=== PATIENT | female | born 1955 | race Caucasian/White ===

== ENCOUNTER → 2017-03-21 | Outpatient (CLI) | payer OTHER | LOC: FIMAGING 10:42 | PROVIDERS: ATTEND Family Medicine | DX: Z12.31 Encounter for screening mammogram for malignant neoplasm of breast (principal) | CPT/HCPCS: G0202 ==

== ENCOUNTER → 2017-04-11 | Outpatient (CLI) | payer OTHER | LOC: FIMAGING 13:26 | PROVIDERS: ATTEND Family Medicine | DX: Z12.31 Encounter for screening mammogram for malignant neoplasm of breast (principal) | CPT/HCPCS: G0202 ==

== ENCOUNTER → 2018-06-14 | Outpatient (CLI) | payer OTHER | LOC: FIMAGING 15:50 | PROVIDERS: ATTEND Family Medicine | DX: Z12.31 Encounter for screening mammogram for malignant neoplasm of breast (principal) ==

== ENCOUNTER 2018-08-24 16:24 | Inpatient (IN) | payer OTHER ==
[2018-08-24] MEDS ORDERED: BISACODYL 10 MG SUPP PR PRN (20:12)
[2018-08-24] MEDS ORDERED: diphenhydrAMINE 25 MG CAP PO PRN ×2 (20:12)
[2018-08-24] MEDS ORDERED: LORazepam 0.5 MG TAB PO PRN (20:12)
[2018-08-24] MEDS ORDERED: OXYCODONE/APAP 5/325 TAB PO PRN (20:12)
[2018-08-24] MEDS ORDERED: CEFAZOLIN IV SCH (20:15)
[2018-08-24] MEDS ORDERED: DEXTROSE 2 GM IV SCH (20:15)
[2018-08-24] MEDS ORDERED: ALBUTEROL 60 PUFFS/8 GM MDI IH PRN (20:16)
[2018-08-24] MEDS: ASPIRIN EC 325 MG TAB PO SCH (21:42)
[2018-08-24] MEDS: traZODone 50 MG TAB PO SCH (21:42)
[2018-08-24] MEDS: SENNOSIDES/DOCUSATE SODIUM TAB PO SCH (21:42)
[2018-08-24] MEDS: MELATONIN 3 MG TAB PO SCH (21:42)
[2018-08-24] MEDS: PATCH REMOVAL 1 EA PATCH TD SCH (22:00)
[2018-08-24] MEDS: CLOTRIMAZOLE 10 MG TROCHE PO SCH (22:00)
[2018-08-24] MEDS: ceFAZolin 2 GM/DEXTROSE 100 ML IV SCH (23:04)
[2018-08-25] MEDS: ceFAZolin 2 GM/DEXTROSE 100 ML IV SCH ×3 (07:28→21:50)
[2018-08-25] MEDS ORDERED: RIFAMPIN 300 MG CAP PO SCH (07:30)
[2018-08-25] MEDS ORDERED: FAMOTIDINE 20 MG TAB PO SCH (09:00)
[2018-08-25] MEDS ORDERED: LEVOTHYROXINE 50 MCG TAB PO SCH (09:00)
[2018-08-25 09:05] LABS: PLATELET COUNT 453 10^3/uL (150-400)
[2018-08-25] MEDS: FLUTICASONE NASAL 120 SPRAYS/16 GM MDI EACHNARE SCH (09:55)
[2018-08-25] MEDS: CLOTRIMAZOLE 10 MG TROCHE PO SCH ×4 (09:56→20:24)
[2018-08-25] MEDS: LIDOCAINE 4%/MENTHOL 1% PATCH TD SCH (09:58)
[2018-08-25] MEDS: ASPIRIN EC 325 MG TAB PO SCH (09:59)
[2018-08-25] MEDS: NYSTATIN POWDER 15 GM BTL TP SCH (10:01)
[2018-08-25] MEDS: MULTIVITAMINS W-MINERALS 1 EACH TAB PO SCH (10:07)
[2018-08-25] MEDS: SENNOSIDES/DOCUSATE SODIUM TAB PO SCH ×2 (10:09→20:23)
[2018-08-25] MEDS: TRIAMTERENE/HCTZ 37.5/25 1 EACH TAB PO SCH (10:09)
--- NOTE | 2018-08-25 12:50 | GHP ---
[f rep st] HISTORY AND PHYSICAL DATE OF ADMISSION: 08/24/2018 TIME OF EVALUATION: 0925 REFERRING FACILITY: [facility]. REFERRING PHYSICIAN: Dr. Foster IMPAIRMENT GROUP: [id number]. DATE OF ONSET: 07/29/2018. CONSULTING PHYSICIANS: Orthopedic surgeon, Dr. Clemons; Infectious Disease customer care consultant, Dr. Lane. REHABILITATION DIAGNOSES: Debility status post staphylococcal sepsis, lumbar diskitis, lumbar osteomyelitis, epidural abscess, and multiple joint septic arthritis. ETIOLOGIC DIAGNOSIS: Other orthopedic. DATE OF SURGERY: She had multiple surgeries during her hospitalization. HISTORY OF PRESENT ILLNESS: This patient was admitted to [facility] on 07/29/2018, with a diagnosis of sepsis with pyogenic arthritis at multiple sites. She had surgeries including incision and drainage of left foot with hardware removal, incision and drainage of left knee, and incision and drainage of right wrist, and subsequent washout procedures. She had incisional wound VACs which eventually were discontinued. Other hospital complications included urinary retention which has resolved, lumbar osteomyelitis/diskitis which was not treated surgically, epidural abscess, psoas abscess, elevated blood pressure , and acute kidney injury. She was eventually medically stabilized and on IV antibiotics with declining inflammatory markers, so she was appropriate for rehabilitation. STUDIES AND LABS IN THE HOSPITAL: I do not have a full list. There were lumbar and thoracic MRIs done which showed the L1 and L2 osteomyelitis, L4 osteomyelitis, L3-4 diskitis, and a posterior paraspinal muscular abscess to T6. Blood cultures grew methicillin-susceptible Staphylococcus aureus which also grew from multiple joint fluids. She had a transesophageal echocardiogram which showed no evidence of endocarditis. Her ejection fraction was 65%. She had MR imaging of the left foot. Most recent CBC showed anemia with a hemoglobin of 8.1 and hematocrit of 25.1. Platelet count was elevated at 461. White blood cell count was 9.2. Serum chemistry showed a slightly low albumin at 2.7. Otherwise, renal function and electrolytes were normal. Magnesium and phosphorus were normal. These labs were all from 08/24/2018. Inflammatory markers on 08/23/2018 showed improvement with erythrocyte sedimentation of 60 and a CRP of 80.4. PRECAUTIONS: She is a fall risk. She has orthopedic precautions with nonweightbearing to the left foot with the exception of transfers. ACTIVE COMORBIDITIES: She has no active tier 1, tier 2 or tier 3 comorbidities. PAST MEDICAL HISTORY: 1. Arthritis to both knees. 2. Asthma. 3. Osteoporosis. 4. Raynaud syndrome. 5. Hypothyroidism. 6. Varicella. PAST SURGICAL HISTORY: She had Achilles tendon surgery in 2014, section, colonoscopy 2007. Left foot surgery, left dislocated metatarsal with pinning in September of 2017. She has had a parathyroidectomy. She has had wisdom tooth extraction. PRE-HOSPITAL MEDICATIONS: 1. Bismuth subsalicylate 2 tablets q.12 hours for diarrhea. 2. Calcium carbonate 200 mg 2 tablets by mouth p.r.n. heartburn. 3. Cyclobenzaprine 5 mg t.i.d. p.r.n. muscle spasm. 4. Diphenhydramine 25 to 75 mg p.o. q.h.s. for sleep. 5. Docusate sodium 100 mg p.o. daily p.r.n. constipation. 6. Fluticasone 2 sprays each nostril daily. 7. Levothyroxine 50 mcg p.o. daily. 8. Meloxicam 15 mg p.o. daily. 9. Oxycodone/acetaminophen 1-2 tablets by mouth every 4 hours p.r.n. 10. Prednisone taper, which had been prescribed at urgent care visit for arthritis prior to her hospitalization. 11. Albuterol 2 puffs q.6 hours p.r.n. 12. Pseudoephedrine 120 mg p.o. b.i.d. p.r.n. nasal congestion. 13. Triamterene/hydrochlorothiazide 37.5/25 one p.o. daily. ADMISSION MEDICATIONS: 1. Albuterol 2 puffs q.4 hours p.r.n. 2. Amlodipine 10 mg p.o. daily. 3. Bisacodyl 10 mg OK p.r.n. 4. Cefazolin 2 g IV q.8 hours. 5. Clotrimazole 10 mg after meals and at h.s. in the form of clotrimazole tanvi. 6. Diphenhydramine 25 p.o. q.6 hours p.r.n. 7. Diphenhydramine 25 mg p.o. q.h.s. p.r.n. insomnia. 8. Fluticasone 2 sprays each naris daily. 9. Levothyroxine 50 mcg p.o. daily. 10. Lorazepam 0.5 mg p.o. q.8 hours p.r.n. anxiety. 11. Melatonin 3 mg p.o. q.h.s. 12. Icy Hot patch. 13. Multivitamin 1 p.o. daily. 14. Nystatin topical daily. 15. Oxycodone/acetaminophen 5/325 one to two tabs p.o. q.4 hours p.r.n. 16. Rifampin 300 mg p.o. b.i.d. before meals. 17. Senna/docusate 1-2 tabs p.o. b.i.d. 18. Triamterene/hydrochlorothiazide each p.o. daily. 19. Aspirin 325 mg p.o. b.i.d. 20. Famotidine 20 p.o. b.i.d. ALLERGIES: There are no known drug allergies. SOCIAL HISTORY: She is . She lives with her . They have 2 children. She is a nonsmoker. She works as a supply chain tech. She was quite active with cycling and weightlifting prior to her illness. FAMILY HISTORY: Noncontributory. She denies family history of immune deficiencies. REVIEW OF SYSTEMS: She is not in pain at present. She took 1 tablet of oxycodone/acetaminophen before bedtime last night. She slept very well on trazodone that was prescribed yesterday evening. Denies cough or dyspnea. Denies fevers or chills. Denies nausea, vomiting, constipation, or diarrhea. She is aware of some weight loss and thinks that she has lost muscle. She is urinating. Otherwise, a 10-point review of systems is negative. PHYSICAL EXAM: VITAL SIGNS: Blood pressure is 152/101 heart rate is 72, respiratory rate is 18, oxygen saturation 94% on room air, temperature was 36.9. Her weight is 43.1 kg, body mass index of 19. GENERAL: This is a slim woman who appears her chronologic age, dressed in street clothes, cooperative, and in no distress. HEENT: Extraocular movements are intact. Pupils are equal , round, and reactive to light. Mucous membranes are moist. There is no thrush evident. Dentition shows a crowded airway, Mallampati class 3. NECK: Supple. HEART: There is regular rate and rhythm with no murmurs rubs or gallops. LUNGS: Clear to auscultation bilaterally. ABDOMEN: Soft, nontender , nondistended, with normal bowel sounds with no hepatosplenomegaly. EXTREMITIES: There is no cyanosis or clubbing. There is 1+ edema left pretibial. NEUROLOGIC: Cranial nerves 2 through 12 grossly intact. There is no focal weakness. Sensation is intact to light touch. SKIN: Wounds were not inspected and will be inspected when dressings are changed per nursing. Otherwise, the skin was warm. CURRENT LEVEL OF FUNCTION: Per the preadmission screen. She was on a regular diet. Dressing required moderate to maximal assist. In the pre-admission screen, toileting involved use of the catheter for urination but catheter has since been removed. Bed mobility required contact guard for logroll. Transfers were done with contact guard assist. She used a front-wheeled walker. Balance required contact guard assist. She had good endurance. She was able to walk 50 feet with a front-wheeled walker with cues to maintain weightbearing. Mentation and cognition were intact. Other than removal of Roth catheter voiding, there are no significant changes today from the pre-admission. IMPRESSION: This is a 63-year-old woman who developed polyarticular septic arthritis. There was a delay in diagnosis as she was initially evaluated for back pain. After several more urgent care visits and doctor visits, polyarthritis was noted, and she was referred to Rheumatology. It Network Engineer did arthrocentesis and found purulent material and hospitalized the patient. She had incision and drainage of multiple joints and hardware removed from previous foot surgery, left foot. Wound cultures and blood cultures all grew methicillin sensitive Staphylococcus aureus. In the course of her illness, she had urinary retention, and she suffered acute kidney injury, both of which have resolved. Her inflammatory markers have been improving on cefazolin IV, and she is medically stable and ready for rehabilitation. Her goal is to complete a rehabilitation stay and return home to her family. For a safe discharge, she will need to advance to supervision to modified independence level for ADLs and mobility using the least restrictive device. She will need to be able to demonstrate safety with the use of compensatory strategies and adherence to weightbearing precautions. She will have therapy with physical therapy and occupational therapy for 90 minutes per day for each discipline. Her expected duration of stay is 5-7 days. It is anticipated that upon discharge, she will continue to benefit from home health services including nursing, social work, occupational therapy, and physical therapy. PLAN: 1. Methicillin sensitive Staphylococcus aureus sepsis, polyarticular septic arthritis, lumbar diskitis, osteomyelitis, epidural abscess, and several other abscesses with debility and left lower extremity weightbearing allowed only for transfers. PT and OT to optimize her mobility, activities of daily living. 2. Continue IV cefazolin for multiple joint septic arthritis sepsis and osteomyelitis/diskitis. She is to have labs drawn every Thursday with CBC, CMP, ESR, and CRP. These labs are to be faxed to Infectious Disease customer care consultant, Dr. Nhung Lane, at [phone]. 3. Nonweightbearing left foot except for transfers. She has followup scheduled with orthopedic surgeon, Dr. Clemons, at [facility] on August 31 at 2 p.m. 4. Symptom management. She slept well with trazodone at h.s. yesterday. This will be continued. Continue oxycodone/acetaminophen and continue lorazepam ordered p.r.n. for anxiety. Will have a low threshold to discontinue lidocaine/ menthol patch. 5. Thrush while in the hospital. She is on clotrimazole tanvi. I saw no evidence of thrush on oral exam today, but it was somewhat limited due to her crowded airway. Will continue until she has no symptoms of thrush. 6. Hypertension. She was on triamterene/hydrochlorothiazide prior to her hospitalization. Amlodipine was added. Blood pressure will be monitored and medications adjusted as needed. 7. Chronic recurrent sinusitis. Fluticasone nasal spray. 8. Hypothyroidism. Continue levothyroxine. 9. History of gastroesophageal reflux disease is listed in her admission paperwork from the hospital, but she denies any gastroesophageal reflux disease. Will not continue famotidine. 10. Questionable history of asthma. Continue albuterol p.r.n. 11. Prophylaxis. There is no hemiparesis. She is not elderly or obese. She is nonweightbearing due to left foot surgery, but otherwise has normal mobility. Will not initiate pharmacologic prophylaxis to be at moderate risk at present. 12. Followup. She is to see Dr. Clemons most likely August 31 at [facility] in [place] rather than at [facility]. She is scheduled to see Infectious Disease customer care consultant, Dr. Lane, on September 06. If she is still in inpatient rehabilitation, will have discussion with Dr. Lane regarding whether she needs to be seen in person. /[id number]/MODL MTDD
[2018-08-25] MEDS: RIFAMPIN 300 MG CAP PO SCH (18:27)
[2018-08-25] MEDS ORDERED: CALCIUM CARBONATE 500 MG CHEWABLE TAB PO PRN (21:20)
[2018-08-25] MEDS ORDERED: MAG HYDROX/AL HYDROX/SIMETH 30 ML UDCUP PO PRN (21:20)
[2018-08-25] MEDS: PATCH REMOVAL 1 EA PATCH TD SCH (21:52)
[2018-08-25] MEDS: traZODone 50 MG TAB PO SCH (21:52)
[2018-08-25] MEDS: MELATONIN 3 MG TAB PO SCH (21:52)
[2018-08-25] MEDS: FAMOTIDINE 20 MG TAB PO SCH (23:12)
[2018-08-26] MEDS: ceFAZolin 2 GM/DEXTROSE 100 ML IV SCH ×3 (06:04→21:23)
[2018-08-26] MEDS: RIFAMPIN 300 MG CAP PO SCH ×2 (06:04→15:47)
[2018-08-26] MEDS: LEVOTHYROXINE 50 MCG TAB PO SCH (06:05)
[2018-08-26] MEDS: SENNOSIDES/DOCUSATE SODIUM TAB PO SCH ×2 (08:42→21:22)
[2018-08-26] MEDS: MULTIVITAMINS W-MINERALS 1 EACH TAB PO SCH (08:42)
[2018-08-26] MEDS: NYSTATIN POWDER 15 GM BTL TP SCH (08:42)
[2018-08-26] MEDS: CLOTRIMAZOLE 10 MG TROCHE PO SCH ×2 (08:43→15:01)
[2018-08-26] MEDS: FAMOTIDINE 20 MG TAB PO SCH ×2 (08:43→21:23)
[2018-08-26] MEDS: TRIAMTERENE/HCTZ 37.5/25 1 EACH TAB PO SCH (08:43)
[2018-08-26] MEDS: FLUTICASONE NASAL 120 SPRAYS/16 GM MDI EACHNARE SCH (09:55)
[2018-08-26] MEDS: LIDOCAINE 4%/MENTHOL 1% PATCH TD SCH (09:56)
--- NOTE | 2018-08-26 11:24 | SOAPPROG ---
SOAP Progress Note Assessment/Plan: Assessment: Methicillin sensitive Staphylococcus aureus sepsis, polyarticular septic arthritis, lumbar diskitis, osteomyelitis, epidural abscess, and several other abscesses with debility and left lower extremity weightbearing allowed only for transfers. PT and OT to optimize her mobility, activities of daily living. Continue IV cefazolin for multiple joint septic arthritis sepsis and osteomyelitis/diskitis. She is to have labs drawn every Thursday with CBC, CMP, ESR, and CRP. These labs are to be faxed to Infectious Disease internet consultant, Dr. Nhung Lane, at [phone]. Dressing changes every other day. * Examined wound on left foot with nurse during dressing change. Sutures are in place. Wounds are clean dry and intact. Nonweightbearing left foot except for transfers. She has followup scheduled with orthopedic surgeon, Dr. Clemons, at [facility] on August 31 at 2 p.m. * Discussed with Dr. Mays, 08/25/2018. Expect she will progress to full weight -bearing after her follow-up visit. Symptom management. She slept well with trazodone at h.s. yesterday. This will be continued. Continue oxycodone/acetaminophen and continue lorazepam ordered p.r.n. for anxiety. Will have a low threshold to discontinue lidocaine/ menthol patch. Thrush while in the hospital, resolved. Discontinue clotrimazole tanvi. Hypertension. She was on triamterene/hydrochlorothiazide prior to her hospitalization. Amlodipine was added. Blood pressure will be monitored and medications adjusted as needed. Chronic recurrent sinusitis. Fluticasone nasal spray. Hypothyroidism. Continue levothyroxine. GERD. Continue famotidine. Questionable history of asthma. Continue albuterol p.r.n. Prophylaxis. There is no hemiparesis. She is not elderly or obese. She is nonweightbearing due to left foot surgery, but otherwise has normal mobility. Will not initiate pharmacologic prophylaxis to be at moderate risk at present. Followup. She is to see Dr. Clemons August 31 at [facility]. She is scheduled to see Infectious Disease internet consultant, Dr. Lane, on September 06. If she is still in inpatient rehabilitation, will have discussion with Dr. Lane regarding whether she needs to be seen in person. 08/26/18 15:28 Subjective: Confusion regarding weight-bearing and followups. Otherwise doing well. Reports pain has improved and will no longer use opiates. Had symptoms reflux after tomato sauce with dinner and famotidine was restarted. Objective: Vital Signs Temp Pulse Resp BP Pulse Ox 36.8 C 85 94 H 135/88 H 92 08/26/18 06:18 08/26/18 08:39 08/26/18 08:39 08/26/18 08:39 08/26/18 06:18 Laboratory Results 08/25/18 06:00 08/25/18 06:00 08/25/18 08/26/18 08/27/18 05:59 05:59 05:59 Intake Total 685 635 640 Output Total 200 3950 500 Balance 485 -3315 140 Physical Exam - Physical Exam General Appearance: WD/WN, alert, no apparent distress, thin Respiratory: No respiratory distress, No accessory muscle use Skin: normal color, warm/dry, other (3 incisions on left foot, sutured, clean, dry, intact) Neuro/Psych: no motor/sensory deficits, alert, normal mood/affect, oriented x 3 ICD10 Worksheet Patient Problems: Problems Problem Status Onset Septic arthritis Acute
--- NOTE | 2018-08-26 11:24 | PDOREHIP ---
Admission [facility] - Admission - 3 Day Assessment Period Admission Date/Day 1: 08/24/18 Day 2: 08/25/18 Day 3: 08/26/18 - Active Diagnoses Comorbidities and Co-existing Conditions at Admission: 91861. None of the Above - Skin Conditions Unhealed Pressure Ulcer (1 or more/Stage 1 or >)-Admission: 0. No # Stage 1 Pressure Ulcers-Admission: 0 # Stage 2 Pressure Ulcers-Admission: 0 # Stage 3 Pressure Ulcers-Admission: 0 # Stage 4 Pressure Ulcers-Admission: 0 # Unstageable Pressure Ulcers (Non-remove Dress)-Admission: 0 # Unstageable Pressure Ulcers (Slough/Eschar)-Admission: 0 # Unstageable Pressure Ulcers (Deep Tissue Injury)-Admission: 0 Discharge [facility] - Discharge - 3 Day Assessment Period 2 Days Prior to Anticipated Discharge Date: 08/29/18 1 Day Prior to Anticipated Discharge Date: 08/30/18 Anticipated Discharge Date: 08/31/18
[2018-08-26] MEDS: ACETAMINOPHEN 325 MG TAB PO PRN ×2 (18:26→22:39)
[2018-08-26] MEDS: traZODone 50 MG TAB PO SCH (21:00)
[2018-08-26] MEDS: MELATONIN 3 MG TAB PO SCH (21:23)
[2018-08-26] MEDS: PATCH REMOVAL 1 EA PATCH TD SCH (22:39)
[2018-08-27] MEDS: LEVOTHYROXINE 50 MCG TAB PO SCH (05:43)
[2018-08-27] MEDS: RIFAMPIN 300 MG CAP PO SCH ×2 (05:43→17:18)
[2018-08-27] MEDS: ceFAZolin 2 GM/DEXTROSE 100 ML IV SCH ×3 (05:43→21:30)
[2018-08-27] MEDS: LIDOCAINE 4%/MENTHOL 1% PATCH TD SCH (08:06)
[2018-08-27] MEDS: FAMOTIDINE 20 MG TAB PO SCH ×2 (08:06→21:30)
[2018-08-27] MEDS: MULTIVITAMINS W-MINERALS 1 EACH TAB PO SCH (08:06)
[2018-08-27] MEDS: TRIAMTERENE/HCTZ 37.5/25 1 EACH TAB PO SCH (08:06)
[2018-08-27] MEDS: ACETAMINOPHEN 325 MG TAB PO PRN ×3 (08:07→20:56)
[2018-08-27] MEDS: FLUTICASONE NASAL 120 SPRAYS/16 GM MDI EACHNARE SCH (08:07)
[2018-08-27] MEDS: SENNOSIDES/DOCUSATE SODIUM TAB PO SCH ×2 (08:08→21:31)
--- NOTE | 2018-08-27 12:01 | SOAPPROG ---
SOAP Progress Note Assessment/Plan: Assessment: Methicillin sensitive Staphylococcus aureus sepsis, polyarticular septic arthritis, lumbar diskitis, osteomyelitis, epidural abscess, and several other abscesses with debility and left lower extremity weightbearing allowed only for transfers. * Initial functional independence measure is 90 on 08/27/2018. Standby assist for transfers and bed mobility. Ambulated 75 ft with front wheeled walker, standby assist with cues for limited weight-bearing. Climbed and descended 3 steps with 1 rail and a crutch. Needed contact guard assist. Had a step to pattern. Setup or standby assist for ADLs. * Continue PT and OT to optimize her mobility, activities of daily living. Continue IV cefazolin for multiple joint septic arthritis sepsis and osteomyelitis/diskitis. She is to have labs drawn every Thursday with CBC, CMP, ESR, and CRP. These labs are to be faxed to Infectious Disease computer consultant, Dr. Nhung Lane, at [phone]. Dressing changes every other day. * ESR 60 and CRP 80.4 on 08/23/2018 in the hospital. ESR 71, CRP 76.9 on 2018. There was no leukocytosis. * Examined wound on left foot with nurse during dressing change. Sutures are in place. Wounds are clean dry and intact, with no swelling or erythema. Nonweightbearing left foot except for transfers. She has followup scheduled with orthopedic surgeon, Dr. Clemons, at [facility] [place] on August 31 at 2 p.m. * Discussed with Dr. Clemons, 08/25/2018. Expect she will progress to full weight- bearing after her follow-up visit. Symptom management. She slept well with trazodone at h.s. yesterday. This will be continued. Acetaminophen is sufficient for pain. Not using lorazepam for anxiety. Will have a low threshold to discontinue lidocaine/menthol patch. Thrush while in the hospital, resolved. Discontinue clotrimazole tanvi. Hypertension. She was on triamterene/hydrochlorothiazide prior to her hospitalization. Amlodipine was added. * Blood pressure remains consistently elevated. She would benefit from a 3rd agent. Per literature review, there is a higher probability of hypertension following acute kidney injury. * Check postvoid residual to ensure that a distended bladder is not causing elevated blood pressure. Chronic recurrent sinusitis. Fluticasone nasal spray. Hypothyroidism. Continue levothyroxine. GERD. Continue famotidine. Questionable history of asthma. Continue albuterol p.r.n. Prophylaxis. There is no hemiparesis. She is not elderly or obese. She is nonweightbearing due to left foot surgery, but otherwise has normal mobility. Will not initiate pharmacologic prophylaxis to be at moderate risk at present. DISPOSITION: Attended staffing, 15 min. Discussed with case management, nursing, PT, OT. Needs to have a high level of independence to be home, as her is gone from 8:00 a.m. To 8:00 p.m.. They are 3 steps to enter the home and then she lives on 1 level. Discharge date set for 08/31/2018. She will have home PT and OT. Followup. She is to see Dr. Clemons August 31 at [facility] [place]. She is scheduled to see Infectious Disease computer consultant, Dr. Lane, on September 06. If she is still in inpatient rehabilitation, will have discussion with Dr. Lane regarding whether she needs to be seen in person. 08/27/18 12:01 08/27/18 12:11 Subjective: She continues to have some pain in the right sacroiliac joint region. However she is no longer taking the oxycodone/acetaminophen combination. She has adequate pain control with acetaminophen alone. She slept better last night with trazodone. She has swelling and reduced range of motion in the left wrist. She denies cough or dyspnea. She denies dysuria or urinary frequency. She feels she is emptying her bladder completely. She wonders why her blood pressure is high. Objective: Vital Signs Temp Pulse Resp BP Pulse Ox 36.8 C 65 18 143/93 H 97 08/27/18 07:54 08/27/18 07:54 08/27/18 07:54 08/27/18 07:54 08/27/18 07:54 Laboratory Results 08/25/18 06:00 08/25/18 06:00 08/26/18 08/27/18 08/28/18 05:59 05:59 05:59 Intake Total 635 1852 Output Total 3950 1100 Balance -3315 752 Physical Exam - Physical Exam General Appearance: WD/WN, alert, no apparent distress Respiratory: normal breath sounds, No crackles, No rhonchi, No wheezing Cardiac/Chest: regular rate, rhythm, No diastolic murmur, No systolic murmur Skin: normal color, warm/dry Extremities: other (Left wrist with mild swelling and reduced range of motion. No warmth or erythema.) Neuro/Psych: no motor/sensory deficits, alert, normal mood/affect, oriented x 3 ICD10 Worksheet Patient Problems: Problems Problem Status Onset Septic arthritis Acute
[2018-08-27] MEDS: NYSTATIN POWDER 15 GM BTL TP SCH (12:42)
[2018-08-27] MEDS: LOSARTAN POTASSIUM 25 MG TAB PO SCH (14:35)
[2018-08-27] MEDS: MELATONIN 3 MG TAB PO SCH (21:31)
[2018-08-27] MEDS: traZODone 50 MG TAB PO SCH (21:31)
[2018-08-27] MEDS: PATCH REMOVAL 1 EA PATCH TD SCH (23:03)
[2018-08-28] MEDS: ceFAZolin 2 GM/DEXTROSE 100 ML IV SCH ×3 (06:02→21:57)
[2018-08-28] MEDS: LEVOTHYROXINE 50 MCG TAB PO SCH (06:02)
[2018-08-28] MEDS: RIFAMPIN 300 MG CAP PO SCH ×2 (06:02→16:04)
[2018-08-28] MEDS: ACETAMINOPHEN 325 MG TAB PO PRN ×3 (07:25→23:02)
--- NOTE | 2018-08-28 09:34 | SOAPPROG ---
SOAP Progress Note Assessment/Plan: Assessment: Methicillin sensitive Staphylococcus aureus sepsis, polyarticular septic arthritis, lumbar diskitis, osteomyelitis, epidural abscess, and several other abscesses with debility and left lower extremity weightbearing allowed only for transfers. * Initial functional independence measure is 90 on 08/27/2018. Standby assist for transfers and bed mobility. Ambulated 75 ft with front wheeled walker, standby assist with cues for limited weight-bearing. Climbed and descended 3 steps with 1 rail and a crutch. Needed contact guard assist. Had a step to pattern. Setup or standby assist for ADLs. * Continue PT and OT to optimize her mobility, activities of daily living. Continue IV cefazolin for multiple joint septic arthritis sepsis and osteomyelitis/diskitis. She is to have labs drawn every Thursday with CBC, CMP, ESR, and CRP. These labs are to be faxed to Infectious Disease performance management consultant, Dr. Nhung Lane, at [phone]. Dressing changes every other day. CHECK LABS ON THURSDAY AND FAXED TO DR. NHUNG LANE * ESR 60 and CRP 80.4 on 08/23/2018 in the hospital. ESR 71, CRP 76.9 on 2018. There was no leukocytosis. * Examined wound on left foot with nurse during dressing change. Sutures are in place. Wounds are clean dry and intact, with no swelling or erythema. Nonweightbearing left foot except for transfers. She has followup scheduled with orthopedic surgeon, Dr. Clemons, at [facility] [place] on August 31 at 2 p.m. * Discussed with Dr. Clemons, 08/25/2018. Expect she will progress to full weight- bearing after her follow-up visit. Symptom management. She slept well with trazodone at [facility] yesterday. This will be continued. Acetaminophen is sufficient for pain. Not using lorazepam for anxiety. Will have a low threshold to discontinue lidocaine/menthol patch. Thrush while in the hospital, resolved. Discontinue clotrimazole tanvi. Hypertension. She was on triamterene/hydrochlorothiazide prior to her hospitalization. Amlodipine was added. * Blood pressure remains consistently elevated. She would benefit from a 3rd agent. Per literature review, there is a higher probability of hypertension following acute kidney injury. * Check postvoid residual to ensure that a distended bladder is not causing elevated blood pressure. * AMLODIPINE WAS ADDED ON 08/27. BLOOD PRESSURE 2/16 A.M. PENDING. BP ON 151/89. WILL CONTINUE TO MONITOR. Chronic recurrent sinusitis. Fluticasone nasal spray. Hypothyroidism. Continue levothyroxine. GERD. Continue famotidine. Questionable history of asthma. Continue albuterol p.r.n. Prophylaxis. There is no hemiparesis. She is not elderly or obese. She is nonweightbearing due to left foot surgery, but otherwise has normal mobility. Will not initiate pharmacologic prophylaxis to be at moderate risk at present. DISPOSITION: Attended staffing, 15 min. Discussed with case management, nursing, PT, OT. Needs to have a high level of independence to be home, as her is gone from 8:00 a.m. To 8:00 p.m.. They are 3 steps to enter the home and then she lives on 1 level. Discharge date set for 08/31/2018. She will have home PT and OT. Followup. She is to see Dr. Clemons August 31 at [facility] [place]. She is scheduled to see Infectious Disease performance management consultant, Dr. Lane, on September 06. If she is still in inpatient rehabilitation, will have discussion with Dr. Lane regarding whether she needs to be seen in person. Plan: 08/28/18 09:28 08/28/18 09:38 08/28/18 09:41 Subjective: SHE DENIES SIGNIFICANT LEFT FOOT PAIN. SHE DOES NOT REPORT INCREASED PAIN DURING TRANSFERS. SHE REPORTS BACK PAIN FROM PROLONGED SITTING AND CUMULATIVE BED REST OVER THE PAST 5 WEEKS. SHE HAS SOME SORENESS OF HER LEFT WRIST. Objective: Vital Signs Temp Pulse Resp BP Pulse Ox 36.9 C 76 15 151/89 H 97 08/27/18 20:00 08/27/18 20:00 08/27/18 20:00 08/27/18 20:00 08/27/18 20:00 Laboratory Results 08/25/18 06:00 08/25/18 06:00 08/27/18 08/28/18 08/29/18 05:59 05:59 05:59 Intake Total 1852 1810 Output Total 1100 3100 300 Balance 752 -1290 -300 Physical Exam - Physical Exam General Appearance: WD/WN, alert, no apparent distress, other (LEFT WALKING BOOT IN PLACE.) Respiratory: lungs clear, normal breath sounds Cardiac/Chest: edema (MILD EDEMA BOTH HANDS MORE PRONOUNCED ON THE LEFT.), No gallop, No diastolic murmur, No friction rub Abdomen: normal bowel sounds, non-tender, soft Skin: normal color, warm/dry Extremities: normal range of motion (DECREASED RIGHT AND LEFT WRIST EXTENSION, MORE PRONOUNCED ON THE LEFT. SLIGHT SWELLING LEFT ULNAR STYLOID), No non- tender (LEFT WRIST SLIGHTLY TENDER TO PALPATION.), No Roxana's sign Neuro/Psych: alert, normal mood/affect, oriented x 3, motor weakness ( GENERALIZED UPPER AND LOWER EXTREMITY WEAKNESS BUT STRENGTH IS FUNCTIONAL.), No sensory deficit ICD10 Worksheet Patient Problems: Problems Problem Status Onset Septic arthritis Acute
[2018-08-28] MEDS: LIDOCAINE 4%/MENTHOL 1% PATCH TD SCH (09:46)
[2018-08-28] MEDS: SENNOSIDES/DOCUSATE SODIUM TAB PO SCH ×2 (09:48→19:21)
[2018-08-28] MEDS: MULTIVITAMINS W-MINERALS 1 EACH TAB PO SCH (09:48)
[2018-08-28] MEDS: FAMOTIDINE 20 MG TAB PO SCH ×2 (09:49→21:57)
[2018-08-28] MEDS: TRIAMTERENE/HCTZ 37.5/25 1 EACH TAB PO SCH (09:49)
[2018-08-28] MEDS: LOSARTAN POTASSIUM 25 MG TAB PO SCH (09:49)
[2018-08-28] MEDS: NYSTATIN POWDER 15 GM BTL TP SCH (09:51)
[2018-08-28] MEDS: FLUTICASONE NASAL 120 SPRAYS/16 GM MDI EACHNARE SCH (09:52)
[2018-08-28] MEDS: MELATONIN 3 MG TAB PO SCH (21:57)
[2018-08-28] MEDS: traZODone 50 MG TAB PO SCH (21:57)
[2018-08-28] MEDS: PATCH REMOVAL 1 EA PATCH TD SCH (21:58)
[2018-08-29] MEDS: RIFAMPIN 300 MG CAP PO SCH ×2 (05:11→16:29)
[2018-08-29] MEDS: LEVOTHYROXINE 50 MCG TAB PO SCH (05:11)
[2018-08-29] MEDS: ceFAZolin 2 GM/DEXTROSE 100 ML IV SCH ×3 (05:11→21:49)
[2018-08-29] MEDS: LIDOCAINE 4%/MENTHOL 1% PATCH TD SCH (07:45)
[2018-08-29] MEDS: FLUTICASONE NASAL 120 SPRAYS/16 GM MDI EACHNARE SCH (07:45)
[2018-08-29] MEDS: FAMOTIDINE 20 MG TAB PO SCH ×2 (07:45→21:49)
[2018-08-29] MEDS: MULTIVITAMINS W-MINERALS 1 EACH TAB PO SCH (07:46)
[2018-08-29] MEDS: SENNOSIDES/DOCUSATE SODIUM TAB PO SCH ×2 (07:46→19:43)
[2018-08-29] MEDS: LOSARTAN POTASSIUM 25 MG TAB PO SCH (07:46)
[2018-08-29] MEDS: NYSTATIN POWDER 15 GM BTL TP SCH (07:46)
[2018-08-29] MEDS: TRIAMTERENE/HCTZ 37.5/25 1 EACH TAB PO SCH (07:47)
[2018-08-29] MEDS: ACETAMINOPHEN 325 MG TAB PO PRN ×3 (09:17→21:51)
--- NOTE | 2018-08-29 09:19 | SOAPPROG ---
SOAP Progress Note Assessment/Plan: Assessment: Methicillin sensitive Staphylococcus aureus sepsis, polyarticular septic arthritis, lumbar diskitis, osteomyelitis, epidural abscess, and several other abscesses with debility and left lower extremity weightbearing allowed only for transfers. * Initial functional independence measure is 90 on 08/27/2018. Standby assist for transfers and bed mobility. Ambulated 75 ft with front wheeled walker, standby assist with cues for limited weight-bearing. Climbed and descended 3 steps with 1 rail and a crutch. Needed contact guard assist. Had a step to pattern. Setup or standby assist for ADLs. * Continue PT and OT to optimize her mobility, activities of daily living. Continue IV cefazolin for multiple joint septic arthritis sepsis and osteomyelitis/diskitis. She is to have labs drawn every Thursday with CBC, CMP, ESR, and CRP. These labs are to be faxed to Infectious Disease sap bw consultant, Dr. Nhung Lane, at [phone]. Dressing changes every other day. CHECK LABS ON THURSDAY AND FAX TO DR. NHUNG LANE * ESR 60 and CRP 80.4 on 08/23/2018 in the hospital. ESR 71, CRP 76.9 on 2018. There was no leukocytosis. * Examined wound on left foot with nurse during dressing change. Sutures are in place. Wounds are clean dry and intact, with no swelling or erythema. * Will discuss with nursing about changing time of IV cefazolin to 11 or 12:00 a.m. So that she will be sure to receive this dose prior to her discharge on Thursday. Nonweightbearing left foot except for transfers. She has followup scheduled with orthopedic surgeon, Dr. Clemons, at [facility] in [place] on August 31 at 2 p.m. * Discussed with Dr. Clemons, 08/25/2018. Expect she will progress to full weight- bearing after her follow-up visit. Symptom management. She slept well with trazodone at [facility] yesterday. This will be continued. Acetaminophen is sufficient for pain. Not using lorazepam for anxiety. Will have a low threshold to discontinue lidocaine/menthol patch. Thrush while in the hospital, resolved. Discontinue clotrimazole tanvi. Hypertension. She was on triamterene/hydrochlorothiazide prior to her hospitalization. Amlodipine was added. * Blood pressure remains consistently elevated. She would benefit from a 3rd agent. Per literature review, there is a higher probability of hypertension following acute kidney injury. * Check postvoid residual to ensure that a distended bladder is not causing elevated blood pressure. * AMLODIPINE WAS ADDED ON 08/27. Blood pressure 08/29 147/89. Still running a little bit high. Amlodipine 25 mg which was added on Thursday may not yet be taking affect. Will continue to monitor. Will consider giving extra dose of amlodipine today or starting higher dose tomorrow if diastolic blood pressure does not come down. Chronic recurrent sinusitis. Fluticasone nasal spray. Hypothyroidism. Continue levothyroxine. GERD. Continue famotidine. Questionable history of asthma. Continue albuterol p.r.n. Prophylaxis. There is no hemiparesis. She is not elderly or obese. She is nonweightbearing due to left foot surgery, but otherwise has normal mobility. Will not initiate pharmacologic prophylaxis to be at moderate risk at present. DISPOSITION: Attended staffing, 15 min. Discussed with case management, nursing, PT, OT. Needs to have a high level of independence to be home, as her is gone from 8:00 a.m. To 8:00 p.m.. They are 3 steps to enter the home and then she lives on 1 level. Discharge date set for 08/31/2018. She will have home PT and OT. Followup. She is to see Dr. Clemons August 31 at [facility] in [place]. She is scheduled to see Infectious Disease sap bw consultant, Dr. Lane, on September 06. If she is still in inpatient rehabilitation, will have discussion with Dr. Lane regarding whether she needs to be seen in person. Plan: 08/28/18 09:28 08/28/18 09:38 08/28/18 09:41 08/29/18 09:17 Subjective: She is concerned about and not being able to receive her Thursday dosage of IV cefazolin prior to discharge on Thursday. She has no other complaints this morning. Objective: Vital Signs Temp Pulse Resp BP Pulse Ox 36.9 C 82 15 147/89 H 96 08/29/18 06:37 08/29/18 06:37 08/29/18 06:37 08/29/18 06:37 02/17/19 06:37 Laboratory Results 08/25/18 06:00 08/25/18 06:00 08/28/18 08/29/18 08/30/18 05:59 05:59 05:59 Intake Total 1810 250 100 Output Total 3100 1800 Balance -1290 -1550 100 Physical Exam - Physical Exam General Appearance: WD/WN, alert, no apparent distress Respiratory: lungs clear, normal breath sounds Cardiac/Chest: regular rate, rhythm, No edema Abdomen: normal bowel sounds, non-tender, other (No suprapubic tenderness) Skin: normal color, warm/dry Extremities: other (Mild right and left wrist swelling slightly more pronounced on the left. Right and left wrist extension and flexion is within functional limits), No swelling, No Roxana's sign ICD10 Worksheet Patient Problems: Problems Problem Status Onset Septic arthritis Acute
[2018-08-29] MEDS: MELATONIN 3 MG TAB PO SCH (21:49)
[2018-08-29] MEDS: traZODone 50 MG TAB PO SCH (21:49)
[2018-08-29] MEDS: PATCH REMOVAL 1 EA PATCH TD SCH (22:23)
[2018-08-30] MEDS: ceFAZolin 2 GM/DEXTROSE 100 ML IV SCH ×3 (05:54→20:39)
[2018-08-30] MEDS: RIFAMPIN 300 MG CAP PO SCH ×2 (05:54→15:58)
[2018-08-30] MEDS: LEVOTHYROXINE 50 MCG TAB PO SCH (05:54)
[2018-08-30] MEDS: ACETAMINOPHEN 325 MG TAB PO PRN ×3 (06:40→21:59)
[2018-08-30] MEDS: LOSARTAN POTASSIUM 25 MG TAB PO SCH (08:53)
[2018-08-30] MEDS: LIDOCAINE 4%/MENTHOL 1% PATCH TD SCH (08:53)
[2018-08-30] MEDS: NYSTATIN POWDER 15 GM BTL TP SCH (08:54)
[2018-08-30] MEDS: MULTIVITAMINS W-MINERALS 1 EACH TAB PO SCH (08:54)
[2018-08-30] MEDS: TRIAMTERENE/HCTZ 37.5/25 1 EACH TAB PO SCH (08:54)
[2018-08-30] MEDS: FLUTICASONE NASAL 120 SPRAYS/16 GM MDI EACHNARE SCH (08:54)
[2018-08-30] MEDS: FAMOTIDINE 20 MG TAB PO SCH ×2 (08:54→22:04)
[2018-08-30] MEDS: SENNOSIDES/DOCUSATE SODIUM TAB PO SCH ×2 (08:55→22:05)
[2018-08-30 09:48] LABS: PLATELET COUNT 453 10^3/uL (150-400)
[2018-08-30] MEDS ORDERED: LOSARTAN POTASSIUM 25 MG TAB PO ONE (11:30)
--- NOTE | 2018-08-30 11:36 | SOAPPROG ---
SOAP Progress Note Assessment/Plan: Assessment: Methicillin sensitive Staphylococcus aureus sepsis, polyarticular septic arthritis, lumbar diskitis, osteomyelitis, epidural abscess, and several other abscesses with debility and left lower extremity weightbearing allowed only for transfers. * Initial functional independence measure is 90 on 08/27/2018. Standby assist for transfers and bed mobility. Ambulated 75 ft with front wheeled walker, standby assist with cues for limited weight-bearing. Climbed and descended 3 steps with 1 rail and a crutch. Needed contact guard assist. Had a step to pattern. Setup or standby assist for ADLs. * Continue PT and OT to optimize her mobility, activities of daily living. Continue IV cefazolin for multiple joint septic arthritis sepsis and osteomyelitis/diskitis. She will continue with IV cefazolin sodium/dextrose 100 mL at 200 mL per IV q.8 hours scheduled. Order written on stallings francoise note in preparation for tomorrow's discharge. Labs from today, 08/30 as follows: Hemoglobin and hematocrit 9.5/30, ESR 67, sodium 135, potassium 4.8, BUN 14, creatinine 0.6. Alk phosphatase 130. C reactive protein 57.3. Total protein 6.2. Albumin 2.9. These labs are to be faxed to Infectious Disease business system consultant , Dr. Nhung Lane, at [phone]. Dressing changes every other day. * ESR 60 and CRP 80.4 on 08/23/2018 in the hospital. ESR 71, CRP 76.9 on 2018. There was no leukocytosis. * Examined wound on left foot with nurse during dressing change. Sutures are in place. Wounds are clean dry and intact, with no swelling or erythema. * Will discuss with nursing about changing time of IV cefazolin to 11 or 12:00 a.m. So that she will be sure to receive this dose prior to her discharge on Thursday. Nonweightbearing left foot except for transfers. BOTH THE PATIENT AND HER PHYSICAL THERAPIST HAVE STATED THAT SHE IS SUPPOSED TO BE TOUCHDOWN WEIGHT- BEARING LEFT LOWER EXTREMITY. STRONGLY ADVISED PATIENT TO CONFIRM THIS WITH HER ORTHOPEDIST, DR. CLEMONS,, ON TOMORROW'S VISIT. IN THE MEANTIME I ADVISED THAT PER DR. CAREY CHECK OUT INFORMATION TO ME AND PER HIS PREVIOUS PROGRESS NOTES SHE SHOULD ONLY BE WEIGHT-BEARING LEFT LOWER EXTREMITY FOR TRANSFERS. She has followup scheduled with orthopedic surgeon, Dr. Clemons, at [facility] in [place] on August 31 at 2 p.m. * Discussed with Dr. Clemons, 08/25/2018. Expect she will progress to full weight- bearing after her follow-up visit. Symptom management. She slept well with trazodone at [facility] yesterday. This will be continued. Acetaminophen is sufficient for pain. Not using lorazepam for anxiety. Will have a low threshold to discontinue lidocaine/menthol patch. Thrush while in the hospital, resolved. Discontinue clotrimazole tanvi. Hypertension. BLOOD PRESSURE THIS MORNING 139/92. DUE TO SERIALLY ELEVATED DIASTOLIC BLOOD PRESSURES, WILL GIVE 1 EXTRA DOSE OF LOSARTAN TODAY AND BEGINNING TOMORROW CHANGE LOSARTAN DOSE TO 50 MG DAILY. She was on triamterene/ hydrochlorothiazide prior to her hospitalization. Amlodipine was added. * Blood pressure remains consistently elevated. She would benefit from a 3rd agent. Per literature review, there is a higher probability of hypertension following acute kidney injury. * Check postvoid residual to ensure that a distended bladder is not causing elevated blood pressure. * AMLODIPINE WAS ADDED ON 08/27. Blood pressure 08/29 147/89. Still running a little bit high. Amlodipine 25 mg which was added on Thursday may not yet be taking affect. Will continue to monitor. Will consider giving extra dose of amlodipine today or starting higher dose tomorrow if diastolic blood pressure does not come down. Chronic recurrent sinusitis. Fluticasone nasal spray. Hypothyroidism. Continue levothyroxine. GERD. Continue famotidine. Questionable history of asthma. Continue albuterol p.r.n. Prophylaxis. There is no hemiparesis. She is not elderly or obese. She is nonweightbearing due to left foot surgery, but otherwise has normal mobility. Will not initiate pharmacologic prophylaxis to be at moderate risk at present. DISPOSITION: Attended staffing, 15 min. Discussed with case management, nursing, PT, OT. Needs to have a high level of independence to be home, as her is gone from 8:00 a.m. To 8:00 p.m.. They are 3 steps to enter the home and then she lives on 1 level. Discharge date set for 08/31/2018. She will have home PT and OT. Followup. She is to see Dr. Clemons August 31 at [facility] in [place]. She is scheduled to see Infectious Disease business system consultant, Dr. Lane, on September 06. If she is still in inpatient rehabilitation, will have discussion with Dr. Lane regarding whether she needs to be seen in person. Plan: 08/28/18 09:28 08/28/18 09:38 08/28/18 09:41 08/29/18 09:17 08/30/18 11:30 Subjective: Patient reports that she has been ambulating with the FWW weight-bearing on left lower extremity. Advised patient that per Dr. Carey is check out note with me and according to his progress notes she is to be weight-bearing the left foot for transfers only. Reviewed this in detail with patient and physical therapist who stated that apparently her weight-bearing status was updated to touchdown weight-bearing left lower extremity. Objective: Vital Signs Temp Pulse Resp BP Pulse Ox 37.2 C 74 16 139/92 H 97 08/30/18 07:40 08/30/18 07:40 08/30/18 07:40 08/30/18 07:40 08/30/18 07:40 Laboratory Results 08/30/18 06:30 08/30/18 06:30 08/29/18 08/30/18 08/31/18 05:59 05:59 05:59 Intake Total 250 1030 240 Output Total 1800 1350 300 Balance -1550 -320 -60 Physical Exam - Physical Exam General Appearance: WD/WN, alert, no apparent distress Respiratory: lungs clear, normal breath sounds Abdomen: normal bowel sounds, non-tender, soft Extremities: No swelling, No Roxana's sign (Patient seen ambulating in room and hallway with FWW with what appeared to be more than touchdown weight-bearing left lower extremity.) ICD10 Worksheet Patient Problems: Problems Problem Status Onset Septic arthritis Acute
--- NOTE | 2018-08-30 12:59 | PDOREHIP ---
Admission [facility] - Admission - 3 Day Assessment Period Admission Date/Day 1: 08/24/18 Day 2: 08/25/18 Day 3: 08/26/18 - Active Diagnoses Comorbidities and Co-existing Conditions at Admission: 65551. None of the Above - Skin Conditions # Stage 1 Pressure Ulcers-Admission: 0 # Stage 2 Pressure Ulcers-Admission: 0 # Stage 3 Pressure Ulcers-Admission: 0 # Stage 4 Pressure Ulcers-Admission: 0 # Unstageable Pressure Ulcers (Non-remove Dress)-Admission: 0 # Unstageable Pressure Ulcers (Slough/Eschar)-Admission: 0 # Unstageable Pressure Ulcers (Deep Tissue Injury)-Admission: 0 Discharge [facility] - Discharge - 3 Day Assessment Period 2 Days Prior to Anticipated Discharge Date: 08/29/18 1 Day Prior to Anticipated Discharge Date: 08/30/18 Anticipated Discharge Date: 08/31/18
[2018-08-30] MEDS: PATCH REMOVAL 1 EA PATCH TD SCH (22:04)
[2018-08-30] MEDS: traZODone 50 MG TAB PO SCH (22:04)
[2018-08-30] MEDS: MELATONIN 3 MG TAB PO SCH (22:04)
[2018-08-31] MEDS: RIFAMPIN 300 MG CAP PO SCH (05:09)
[2018-08-31] MEDS: LEVOTHYROXINE 50 MCG TAB PO SCH (05:09)
[2018-08-31] MEDS: ceFAZolin 2 GM/DEXTROSE 100 ML IV SCH ×2 (05:09→12:03)
[2018-08-31] MEDS: ACETAMINOPHEN 325 MG TAB PO PRN (06:03)
[2018-08-31] MEDS: MULTIVITAMINS W-MINERALS 1 EACH TAB PO SCH (08:46)
[2018-08-31] MEDS: TRIAMTERENE/HCTZ 37.5/25 1 EACH TAB PO SCH (08:46)
[2018-08-31] MEDS: LIDOCAINE 4%/MENTHOL 1% PATCH TD SCH (08:47)
[2018-08-31] MEDS: FAMOTIDINE 20 MG TAB PO SCH (08:47)
[2018-08-31] MEDS: NYSTATIN POWDER 15 GM BTL TP SCH (08:48)
[2018-08-31] MEDS: SENNOSIDES/DOCUSATE SODIUM TAB PO SCH (08:48)
[2018-08-31] MEDS: FLUTICASONE NASAL 120 SPRAYS/16 GM MDI EACHNARE SCH (08:54)
[2018-08-31] MEDS ORDERED: LOSARTAN POTASSIUM 50 MG TAB PO SCH (09:00)
[2018-08-31 10:12] VITALS: BP 119/80
--- NOTE | 2018-08-31 13:44 | SOAPPROG ---
SOAP Progress Note Assessment/Plan: Assessment: Methicillin sensitive Staphylococcus aureus sepsis, polyarticular septic arthritis, lumbar diskitis, osteomyelitis, epidural abscess, and several other abscesses with debility and left lower extremity weightbearing allowed only for transfers. * Initial functional independence measure is 90 on 08/27/2018. Standby assist for transfers and bed mobility. Ambulated 75 ft with front wheeled walker, standby assist with cues for limited weight-bearing. Climbed and descended 3 steps with 1 rail and a crutch. Needed contact guard assist. Had a step to pattern. Setup or standby assist for ADLs. * Continue PT and OT to optimize her mobility, activities of daily living. Continue IV cefazolin for multiple joint septic arthritis sepsis and osteomyelitis/diskitis. She will continue with IV cefazolin sodium/dextrose 100 mL at 200 mL per IV q.8 hours scheduled. Order written on stallings francoise note in preparation for tomorrow's discharge. Labs from today, 08/30 as follows: Hemoglobin and hematocrit 9.5/30, ESR 67, sodium 135, potassium 4.8, BUN 14, creatinine 0.6. Alk phosphatase 130. C reactive protein 57.3. Total protein 6.2. Albumin 2.9. These labs are to be faxed to Infectious Disease mgmt consultant , Dr. Nhung Lane, at [phone]. Dressing changes every other day. * ESR 60 and CRP 80.4 on 08/23/2018 in the hospital. ESR 71, CRP 76.9 on 2018. There was no leukocytosis. * Examined wound on left foot with nurse during dressing change. Sutures are in place. Wounds are clean dry and intact, with no swelling or erythema. * Will discuss with nursing about changing time of IV cefazolin to 11 or 12:00 a.m. So that she will be sure to receive this dose prior to her discharge on Thursday. Patient is being discharged today. She is medically stable. She did have a little bit of lightheadedness earlier this morning which may be due to recent increase in losartan, however this resolved. She was advised to have follow-up with primary care physician for continued blood pressure monitoring with appropriate adjustments as deemed necessary by her primary care physician. Patient receive morning dose of IV cefazolin this morning. Arrangements have been made for her to continue this through home health. Her labs have been forwarded to Infectious Disease who was following her. She has follow-up with Infectious Disease on 09/06. She has follow-up with her orthopedic surgeon, Dr. Clemons later today. Have specifically discussed with patient for her to ask Dr. Clemons to review current weight-bearing status of left lower extremity. Her exam was stable today's she is discharged in medically stable condition. All followups were reviewed with her through nurse counter caser, Louisa Fox. Complete discharge summary was dictated under separate cover of on 08/31/18 at 1 :38 p.m.. 08/31/18 13:44 Subjective: Patient reports she is feeling a little lightheaded this morning after given of blood pressure medications. Currently denies dizziness. Denies feeling lightheaded. Denies diplopia. Denies feeling flushed Objective: Vital Signs Temp Pulse Resp BP Pulse Ox 36.7 C 78 21 H 119/80 100 08/31/18 10:05 08/31/18 10:05 08/31/18 10:05 08/31/18 10:05 08/31/18 10:05 Laboratory Results 08/30/18 06:30 08/30/18 06:30 08/30/18 08/31/18 09/01/18 05:59 05:59 05:59 Intake Total 1030 990 Output Total 1350 1500 Balance -320 -510 Physical Exam - Physical Exam General Appearance: WD/WN, alert, no apparent distress Respiratory: lungs clear, normal breath sounds Abdomen: non-tender, soft Neuro/Psych: motor weakness (4+/5 right left quadriceps, hamstrings. No evidence of footdrop on the right. Left ankle dorsiflexors not assess secondary to walking cast.) ICD10 Worksheet Patient Problems: Problems Problem Status Onset Septic arthritis Acute
--- NOTE | 2018-08-31 19:34 | GDS ---
[f rep st] DISCHARGE SUMMARY ADMITTING DIAGNOSES: 1. Debility status post Staphylococcus sepsis. 2. Lumbar diskitis. 3. Lumbar osteomyelitis. 4. Epidural abscess. 5. Multiple joint septic arthritis. DISCHARGE DIAGNOSES: 1. Debility status post Staphylococcus sepsis. 2. Lumbar diskitis. 3. Lumbar osteomyelitis. 4. Epidural abscess. 5. Multiple septic joint arthritis. OTHER DISCHARGE DIAGNOSES: 1. Hypertension. 2. Nonweightbearing, left lower extremity. 3. Thrush. 4. Hypertension. 5. Hypothyroidism. 6. Gastroesophageal reflux disease. COMPLICATIONS: None. CONSULTATIONS: None. HOSPITAL COURSE: The patient was admitted to the rehab service on 08/24/2018 upon transfer from [facility] on with a diagnosis of sepsis with pyogenic arthritis of multiple sites. She had surgeries including incision and drainage of left foot and hardware removal, incision and drainage of left knee, and incision and drainage of right wrist with subsequent washout procedures. Wound VACs were eventually discontinued. Hospital complication at [facility] included urinary retention which resolved prior to her transfer to the [facility]. She was eventually stabilized and on IV antibiotics with declining inflammatory markers, so she was felt to be appropriate for rehabilitation. Prior to admission to the rehab unit, the patient required [id number] assist for dressing; required contact guard for logroll, bed mobility; transfers were performed, contact guard assist. She was ambulating with a front -wheeled walker, distance of 50 feet. She underwent comprehensive rehabilitation including integrated physical and occupational therapy for gait training, lower extremity strengthening, and upper extremity strengthening, respectively. She was weightbearing left lower extremity for transfers only. She did well medically with the exception of some hypertension for which losartan was added to her antihypertensive regimen beginning with 25 mg and eventually increased to 50 mg on 08/30, 1 day prior to discharge. She was continued on IV cefazolin 2 g/dextrose of 100 mL at 200 mL per IV q.8 hours. On 08/30, C-reactive protein was noted to be 57.3. BUN 14, creatinine 0.6. She tolerated therapies well, and by discharge, was ambulating with the FWW, touchdown weightbearing left lower extremity using the FWW. By discharge, she was ambulating at least 150 feet using the FWW and able to accomplish ascending/descending 3 steps using 1 rail and a walker. DISCHARGE PLAN: She is being discharged to home in stable condition. She received 1 dosage of IV antibiotics on the day of discharge. Home health was arranged for her to continue with her IV antibiotics 2 g cefazolin sodium/ dextrose 100 mL at 200 mL per IV q.8 hours. She had an outpatient appointment with her orthopedist today. She will also have followup with infectious disease , Dr. Lane, on Thursday, 09/06. Her followup with orthopedics is Dr. Clemons, [facility] in [place]. MEDICATIONS ON DISCHARGE: 1. Albuterol 2 puffs q.4 hours. 2. Amlodipine 10 mg p.o. daily. 3. Cefazolin 2 g/100 mL dextrose IV t.i.d. 4. Famotidine 20 mg p.o. b.i.d. 5. Fluticasone 2 sprays each nostril daily. 6. Levothyroxine 50 mcg p.o. daily. 7. Lorazepam 0.5 p.o. q.8 hours p.r.n. anxiety. 8. Losartan 50 mg p.o. daily. 9. Melatonin 3 mg p.o. at bedtime. 10. Rifampin 300 mg p.o. b.i.d. 11. Triamterene 37.5 mg p.o. daily. ISSUES TO BE ADDRESSED AT FOLLOWUP: 1. Follow up with orthopedic surgeon, Dr. Clemons, on 08/31. 2. Follow up with infectious disease, Dr. Lane, on 09/06. 3. Home health through [facility] for continuation of IV antibiotics as described above. 4. She is to have followup with her primary care physician within the next week to monitor blood pressure and make necessary adjustments of current blood pressure medications. Copy requested to: Dr. Ariana Clemons /[id number]/MODL MTDD
== END 2018-08-31 13:20 | disposition home health service (06) | DRG 539 ==
LOC: BREH 17:45
PROVIDERS: ADMIT Internal Medicine Hospice and Palliative Medicine; ATTEND Internal Medicine Hospice and Palliative Medicine
PROC: F07Z5FZ Bed Mobility Treatment using Assistive, Adaptive, Supportive or Protective Equipment (ICD-10-PCS; principal; 2018-08-24)
PROC: F07Z8FZ Transfer Training Treatment using Assistive, Adaptive, Supportive or Protective Equipment (ICD-10-PCS; principal; 2018-08-24)
PROC: F07Z9FZ Gait Training/Functional Ambulation Treatment using Assistive, Adaptive, Supportive or Protective Equipment (ICD-10-PCS; principal; 2018-08-24)
DX: M46.36 Infection of intervertebral disc (pyogenic), lumbar region (principal); G06.1 Intraspinal abscess and granuloma; K68.12 Psoas muscle abscess; B37.0 Candidal stomatitis; Z91.81 History of falling; M17.0 Bilateral primary osteoarthritis of knee; J45.909 Unspecified asthma, uncomplicated; M81.0 Age-related osteoporosis without current pathological fracture; I73.00 Raynaud's syndrome without gangrene; E03.9 Hypothyroidism, unspecified; I10 Essential (primary) hypertension; J32.9 Chronic sinusitis, unspecified; K21.9 Gastro-esophageal reflux disease without esophagitis; A41.01 Sepsis due to Methicillin susceptible Staphylococcus aureus; M46.26 Osteomyelitis of vertebra, lumbar region
CPT/HCPCS: 97110-GO; 97110-GP; 97116-GP; 97161-GP; 97166-GO; 97530-GO; 97530-GP; 97535-GO; 97542-GP; J0690